=== PATIENT | female | born 1985 | race African-American/Black ===

== ENCOUNTER 2023-08-21 21:26 | Emergency (ER) | payer BC, SELFPAY ==
[2023-08-21 21:28] VITALS: BP 165/96
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
[2023-08-21] MEDS: TYLENOL 1000 MG PO (22:28)
[2023-08-22 00:09] VITALS: BP 149/90
== END 2023-08-22 00:11 | disposition home or self-care (01) ==
LOC: EMR 21:26
PROVIDERS: EMERGENCY PHYSICIAN Emergency Medicine; FAMILY PHYSICIAN Nurse Practitioner Family
DX: R51.9 Headache, unspecified (principal); S16.1XXA Strain of muscle, fascia and tendon at neck level, initial encounter; Y04.2XXA Assault by strike against or bumped into by another person, initial encounter
CPT/HCPCS: 99284; 70450; 72125

== ENCOUNTER 2024-10-29 14:00 | Emergency (ER) | payer BC, SELFPAY ==
[2024-10-29 14:07] VITALS: BP 172/93
[2024-10-29 14:46] LABS: HCG, Serum Qualitative Screen Negative
[2024-10-29 14:58] LABS: ALT (SGPT) 51 U/L (0-35); AST (SGOT) 61 U/L (14-36); Albumin 3.7 g/dl (3.5-5.0); Alkaline Phosphatase 130 U/L (38-126); Blood Urea Nitrogen 14 mg/dl (7-17); Calcium 9.3 mg/dl (8.4-10.2); Carbon Dioxide 26 mmol/L (22-30); Chloride 109 mmol/L (98-107); Glucose 104 mg/dl (70-99); Potassium 4.2 mmol/L (3.5-5.1); Sodium 141 mmol/L (135-145); Total Bilirubin 0.3 mg/dl (0.2-1.3); Total Protein 7.2 g/dl (6.3-8.2); eGFR > 60.00
[2024-10-29 14:59] LABS: NT-proBNP 298 pg/ml
[2024-10-29 15:00] LABS: % Basophils 0.6 % (0-2); % Eosinophils 4.6 % (0-6); % Immature Granulocytes 0.4 % (0-0.5); % Lymphocytes 49.2 % (20.5-51.1); % Monocytes 7.3 % (1.7-9.3); % Neutrophils 37.9 % (42.2-75.2); Absolute Eosinophils 0.2 10^3/uL (0-0.7); Absolute Lymphocytes 2.4 10^3/uL (1.2-3.4); Absolute Monocytes 0.4 10^3/uL (0.1-0.6); Absolute Neutrophils 1.8 10^3/uL (1.4-6.5); Hematocrit 28.4 % (37.0-47.0); Hemoglobin 8.6 g/dL (12.0-16.0); Mean Corp Hgb Conc. 30.3 g/dL (33.0-37.0); Mean Corpuscular Hgb 18.1 pg (27.0-31.0); Mean Corpuscular Volume 59.9 fL (81.0-99.0); Nucleated Red Blood Cells % 0 %; Platelet Count 370 10^3/uL (130-400); Red Blood Cell Count 4.74 10^6/uL (4.20-5.40); Red Cell Dist. Width 18.5 % (11.5-14.5); White Blood Cell Count 4.8 10^3/uL (4.8-10.8)
[2024-10-29 15:26] VITALS: BMI 41.9
[2024-10-29 15:31] VITALS: BP 151/74
--- NOTE | 2024-10-29 15:32 | ED.GENMED ---
History of Present Illness
General
Chief Complaint: Generalized Pain
Source: patient
Exam Limitations: none
Time Seen by Provider: 10/29/24 15:10
History of Present Illness
History of Present Illness:
39-year-old female complaining of joint pains mostly hands knees and ankles. Started 4 to 5 days ago. Briefly had a fever initially but none now. No rash. No other infectious symptoms denying cough congestion abdominal pain urinary symptoms. No
history of same. No obvious sick.
Past History
Past History
ED Past Medical History: HTN, NIDDM and Other (Thalassemia)
ED Past Surgical History: and Tonsilectomy; Negative Cardiac
Social History
Tobacco: Non-smoker
Alcohol: None
Drug: None
Personal: Single
Living: with family
Employment: Employed
Family History
Family History: Diabetes and Hypertension
Review of Systems
Review of Systems
All Other Systems: Not applicable
Constitutional: Denies chills
Respiratory: Reports no symptoms
ABD/GI: Reports no symptoms
: Reports no symptoms
Phy Exam
Physical Exam
Physical Exam:
GENERAL: Alert and oriented in no apparent distress
EYE: Orbits normal.
NECK: Supple
CARDIAC: Regular rate and rhythm without any obvious murmurs.
LUNGS: Clear breath sounds,normal
ABDOMEN: Soft, without focal tenderness or distention
NEUROLOGICAL: Alert and oriented , grossly non-focal
SKIN: Warm and dry, no rash or lesion, no discoloration, skin intact.
MUSCULOSKELETAL: No edema,no deformity.Good color. Mild tenderness both wrists knees and ankles. However no obvious warmth no significant swelling that I can note. Hips are normal shoulders normal. Fingers normal. Toes normal.
PSYCH: Normal and appropriate interaction.
Course
Orders/Labs/Results
Orders:
Orders
10/29/24 14:15
Test Result ONCE
10/29/24 14:22
C-Reactive Protein Urgent
Comment: ADD ON
Complete Blood Count/With Diff Urgent
Comprehensive Metabolic Panel Urgent
Creatine Phosphokinase Urgent
Comment: ADD ON
Erythrocyte Sed Rate Urgent
Comment: ADD ON
HCG, Serum Qualitative Screen Urgent
Lyme Progressive Urgent
NT-proBNP Urgent
10/29/24 15:20
Add On- LAB Urgent
Tests Added?: cpk,esr,crp
10/29/24 15:30
Urinalysis Reflex To Culture Urgent
Date Specimen was Collected: 10/29/24
Time Specimen was Collected: 15:28
Urine Microscopic Reflex Cult Urgent
10/29/24 18:01
US Periph Venous LOWER Ext Rajendra Urgent
Comment:
Reason For Exam: Bilateral calf pain
10/29/24 19:38
Prednisone [Deltasone] 40 mg PO NOW STA
Abnormal Lab Results
10/29/24 10/29/24
14:22 15:30
Hgb 8.6 L g/dL
(12.0-16.0)
Hct 28.4 L %
(37.0-47.0)
MCV 59.9 L fL
(81.0-99.0)
MCH 18.1 L pg
(27.0-31.0)
MCHC 30.3 L g/dL
(33.0-37.0)
RDW 18.5 H %
(11.5-14.5)
Neutrophils % 37.9 L %
(42.2-75.2)
ESR 72 H mm/hour
(0-20)
Chloride 109 H mmol/L
(98-107)
Glucose 104 H mg/dl
(70-99)
AST 61 H U/L
(14-36)
ALT 51 H U/L
(0-35)
Alkaline Phosphatase 130 H U/L
(38-126)
Creatine Kinase 788 H U/L
(30-135)
C-Reactive Protein 28.30 H mg/L
(0.0-10.00)
Ur Occult Blood Reflex 1+ A
(Negative)
Urine Bacteria (Reflex) Few A
(Negative)
Urine Albumin (Reflex) 1+ A
(Neg - Trace)
10/29/24 14:22
10/29/24 14:22
Vital Signs
Initial and Last Documented VS:
Initial Vital Signs
Temp Pulse Resp BP Pulse Ox
97.8 F 70 18 172/93 100
10/29/24 14:07 10/29/24 14:07 10/29/24 14:07 10/29/24 14:07 10/29/24 14:07
Last Documented Vital Signs
Temp Pulse Resp BP Pulse Ox
98.1 F 67 18 162/84 100
10/29/24 15:31 10/29/24 20:03 10/29/24 20:03 10/29/24 20:03 10/29/24 20:03
MDM/Problems Addressed
Differential Diagnosis Includes:
Patient describing polyarthralgia. Mild muscle pain bilaterally in both calves. Very low suspicion for DVT. No cord. Combined with arthralgias of ankles knees and hands does not fit a DVT diagnosis . No obvious infectious issues. Lyme titer
pending. We will not get a definitive diagnosis at this time. Will do CRP ESR and CPK. Likely will need rheumatology follow-up
*Pulse Oximetry
Patient hypoxic: no (100%)
*Critical Care Note
Total Time (30-74mins, 75-104mins- exclusive of procedures): Not Applicable
Update Note
Update Note:
Mild transaminitis. Mild to moderate inflammatory marker elevation. Minimal CPK elevation. Differential would include viral syndrome Lyme disease polymyositis. Tried to contact rheumatology with no success. Talk to patient's primary office and
covering physician. I did offer admission of the patient although a very low benefit to admission at this time. However it was offered. Patient does not want to stay which is reasonable. Will start low dose of prednisone. Repeat labs in 2 days.
Stay well-hydrated and close follow-up
Ultrasounds negative. Legs were rechecked. She has a small tiny denis on her left leg but no surrounding erythema and no drainage. Doubt this is a tick bite. Nothing to indicate antibiotic coverage at this time
ED Attending Note
-
Portions of this chart may have been created with voice recognition software.� Occasional wrong word or��sound alike� substitutions may have occurred due to the inherent limitations of voice recognition software.
Discharge Plan
Departure
Patient Disposition: Home (Routine Discharge)
Date of Disposition: 10/29/24
Time of Disposition: 17:54
Patient with high blood pressure during this ER visit?: Yes
Discharge Problem:
Polyarthralgia, Mild transaminitis, Chronic anemia, Mild myositis
Instructions: BLOOD PRESSURE
Prescriptions:
New
prednisone 10 mg tablet
10 mg PO DAILY Qty: 20 0RF
Rx Instructions:
4 tabs day 1. Then 1 less tab every other day until gone
No Action
glyburide 5 MG tablet
5 mg PO BID
amlodipine 10 MG tablet
10 mg PO DAILY
ibuprofen 800 MG tablet
800 mg PO Q6HPRN PRN (Reason: pain fever)
acetaminophen [Tylenol Extra Strength] 500 MG tablet
1,000 mg PO Q4HPRN PRN (Reason: pain)
enalapril maleate 5 MG tablet
5 mg PO DAILY Qty: 30 0RF
promethazine 25 MG tablet
25 mg PO Q6HPRN PRN (Reason: headache/vomiting) Qty: 10 0RF
Referrals:
Ricky Malik MD [Active, Rheumatology] - Next open appointment
Emely Milton CRNP [Family Provider] - Tomorrow
Activity Restrictions/Additional Instructions:
Your information was given to the gasket inspector. They should contact you for close follow-up. If not call them late morning tomorrow.
Get the repeat labs done in 2 days. Make sure that these are followed up closely
Return with any concerns including increased swelling redness fever rash or any other concerning symptoms
Monitor your blood sugars closely while on the steroids
The Lyme titer should be back in 2 to 4 days
Interventions
Interventions:
*Risk Screen - Suicide Last Done: 10/29/24 14:07
*General Assessment Last Done: 10/29/24 14:07
*Neglect/Abuse Screening Last Done: 10/29/24 14:07
*ED- Fall Risk Assessment Last Done: 10/29/24 15:28
*ED COVID-19 Vaccine History Last Done: 10/29/24 15:28
*Nursing Disposition Last Done: 10/29/24 20:10
Discharge Date and Time
Discharge Date/Time: 10/29/24 20:11
Print Language: MALTESE
[2024-10-29 16:00] LABS: Erythrocyte Sed Rate 72 mm/hour (0-20)
[2024-10-29 16:02] LABS: Creatine Phosphokinase 788 U/L (30-135)
[2024-10-29 16:03] LABS: Urine Albumin 1+ (Neg - Trace); Urine Bilirubin Negative (Negative); Urine Character Clear (Clear); Urine Color Yellow; Urine Glucose Negative (Negative); Urine Ketone Negative (Negative); Urine Leukocyte Negative (Negative); Urine Nitrite Negative (Negative); Urine Occult Blood 1+ (Negative); Urine Urobilinogen Negative (Neg - 1+)
[2024-10-29 16:27] LABS: Urine Red Blood Cell 0-2 /HPF (0-2); Urine Squamous Cell >30 /LPF (Few); Urine White Cell 0-2 /HPF (0-5)
[2024-10-29 16:28] LABS: Urine Bacteria Few (Negative)
[2024-10-29 17:07] VITALS: BP 150/85
[2024-10-29] MEDS: DELTASONE 40 MG PO (20:02)
[2024-10-29 20:03] VITALS: BP 162/84
== END 2024-10-29 20:11 | disposition home or self-care (01) ==
LOC: EMR 14:00
PROVIDERS: Physician Assistant; EMERGENCY PHYSICIAN Emergency Medicine; FAMILY PHYSICIAN Nurse Practitioner Family
DX: M79.642 Pain in left hand (principal); M79.641 Pain in right hand; M25.572 Pain in left ankle and joints of left foot; M25.571 Pain in right ankle and joints of right foot; M79.662 Pain in left lower leg; M79.661 Pain in right lower leg; R74.01 Elevation of levels of liver transaminase levels; D64.9 Anemia, unspecified; M60.9 Myositis, unspecified; E11.9 Type 2 diabetes mellitus without complications; I10 Essential (primary) hypertension; D56.9 Thalassemia, unspecified; M25.562 Pain in left knee; M25.561 Pain in right knee
CPT/HCPCS: 99284; 80053; 81003; 81015; 82550; 83880; 84703; 85025; 85652; 86140; 86618; 93970

== ENCOUNTER 2025-01-10 12:47 | Emergency (ER) | payer BC, SELFPAY ==
[2025-01-10 12:53] VITALS: BP 187/98
--- NOTE | 2025-01-10 14:09 | ED.GENMED ---
History of Present Illness
General
Chief Complaint: Chest Pain
Time Seen by Provider: 01/10/25 14:01
History of Present Illness
History of Present Illness:
Patient is a 39-year-old female with past medical history of hypertension and diabetes here today for evaluation of chest pain that began earlier today. Pain is localized to the lower central midline and extends along the upper middle epigastrium.
No left upper quadrant or right upper quadrant abdominal pain. No lower abdominal pain. No upper chest pain. No difficulty breathing. No fevers. No vomiting or diarrhea. She also endorses a headache associated with blurry vision. No focal
weakness noted. No other acute complaints. She does report a history of hypertension and has been compliant with her medications which include amlodipine.
Past History
Past History
ED Past Medical History: HTN, NIDDM and Other (Thalassemia)
ED Past Surgical History: and Tonsilectomy; Negative Cardiac
Social History
Tobacco: Non-smoker
Alcohol: None
Drug: None
Personal: Single
Living: with family
Employment: Employed
Family History
Family History: Diabetes and Hypertension
Review of Systems
Review of Systems
All Other Systems: ROS reviewed and negative except as documented in HPI and ROS
Phy Exam
Physical Exam
Physical Exam:
GENERAL: Alert , in no apparent distress
EYE: pupils equal and reactive, extraocular movements intact
NECK: Supple
ENT: o/p clr, mmm.
CARDIAC: Regular rate and rhythm .
LUNGS: Clear breath sounds bilaterally, no acute respiratory distress, no wheezes/rales/rhonchi
ABDOMEN: Soft, mild epigastric abdominal tenderness to palpation, no r/g
NEUROLOGICAL: Alert and oriented, no focal neuro deficits, cranial nerves II through XII intact, moving all extremities, normal sensation and motor
SKIN: Warm and dry, skin intact.
MUSCULOSKELETAL: No edema, well perfused.
PSYCH: Normal and appropriate interaction.
Scores
Heart Score for Chest Pain Patients
STEMI patient?: No
History: Slightly or Non-Suspicious
ECG: Normal
Age: </= 45 years
Risk Factors: >/= 3 Risk Factors or History of CAD
Troponin: </= Normal Limit
Heart Score for Chest Pain Patients: 2
Heart Score Risk: 2.5% MACE over next 6 weeks
Course
Orders/Labs/Results
Orders:
Orders
01/10/25 12:49
Electrocardiogram (*1) Urgent
Reason for Study: Chest Pain
EKG- Treatment ONCE
01/10/25 14:08
US Abdomen Complete/Upper Urgent
Reason For Exam: epigastric abd pain
01/10/25 14:09
CT Head W/o Iv Contrast Urgent
Comment:
Reason For Exam: headache, elevated blood pressure
CR Chest - 2 Views Urgent
Comment:
Reason For Exam: chest pain
01/10/25 14:18
Complete Blood Count/With Diff Urgent
Comprehensive Metabolic Panel Urgent
Lipase Urgent
Troponin I Urgent
01/10/25 16:51
Ibuprofen [Motrin] 800 mg PO NOW STA
Abnormal Lab Results
01/10/25
14:18
Hgb 8.5 L g/dL
(12.0-16.0)
Hct 28.2 L %
(37.0-47.0)
MCV 60.9 L fL
(81.0-99.0)
MCH 18.4 L pg
(27.0-31.0)
MCHC 30.1 L g/dL
(33.0-37.0)
RDW 18.7 H %
(11.5-14.5)
Plt Count 416 H 10^3/uL
(130-400)
MPV 10.5 H fL
(7.4-10.4)
Absolute Monos (auto) 0.7 H 10^3/uL
(0.1-0.6)
01/10/25 14:18
01/10/25 14:18
Vital Signs
Initial and Last Documented VS:
Initial Vital Signs
Temp Pulse Resp BP Pulse Ox
98.5 F 84 18 187/98 98
01/10/25 12:53 01/10/25 12:53 01/10/25 12:53 01/10/25 12:53 01/10/25 12:53
Last Documented Vital Signs
Temp Pulse Resp BP Pulse Ox
98.5 F 67 10 171/97 100
01/10/25 12:53 01/10/25 14:15 01/10/25 14:15 01/10/25 14:17 01/10/25 14:17
MDM/Problems Addressed
Differential Diagnosis Includes:
Patient is a 39-year-old female with past medical history of hypertension and diabetes here today for evaluation of chest pain that began earlier today. Overall, patient appears very well. Vitals remarkable for a moderately elevated blood pressure.
Physical examination described above. Patient is neurologically intact without acute focal deficits appreciated. She has a normal cardiopulmonary examination. She is mildly tender along the epigastrium. No rebound or guarding. We will monitor
her and repeat the patient's blood pressure. Will obtain EKG, chest x-ray, and screening labs. Will obtain CT brain and right upper quadrant ultrasound.
01/10/2025 17:20: Screening labs reveal anemia with a hemoglobin of 8.5 which is consistent with the patient's baseline. Head CT and chest x-ray negative. Right upper quadrant ultrasound reveals findings of gallstones without acute cholecystitis.
Repeat blood pressure improving. Patient made aware of findings. She appears very well overall. No emergent findings identified. Patient appears well and suitable for outpatient follow-up. Will recommend hematology evaluation for the anemia as
well as general surgery follow-up for the gallstones. Recommend supportive measures and close follow-up. Patient voices understanding. All questions answered. Stable for discharge.
*Pulse Oximetry
SaO2: 98
Oxygen Mode of Delivery: Room air
Patient hypoxic: no
*Critical Care Note
Total Time (30-74mins, 75-104mins- exclusive of procedures): Not Applicable
ED Attending Note
-
Portions of this chart may have been created with voice recognition software.� Occasional wrong word or��sound alike� substitutions may have occurred due to the inherent limitations of voice recognition software.
Discharge Plan
Departure
Patient Disposition: Home (Routine Discharge)
Date of Disposition: 01/10/25
Time of Disposition: 17:18
Patient with high blood pressure during this ER visit?: Yes
Condition: Fair
Discharge Problem:
Chest pain, Headache, Abdominal pain
Instructions: High Blood Pressure (DC), Gallstones (DC), Headache in adults - ED (DC), Chest Pain CBC Follow Up
Prescriptions:
New
ibuprofen 800 mg tablet
800 mg PO Q8H PRN (Reason: Pain) 5 Days Qty: 15 0RF
Rx Instructions:
Take with food
No Action
amlodipine 10 MG tablet
7.5 mg PO DAILY
ibuprofen 800 MG tablet
800 mg PO Q6HPRN PRN (Reason: pain fever)
acetaminophen [Tylenol Extra Strength] 500 MG tablet
1,000 mg PO Q4HPRN PRN (Reason: pain)
Referrals:
Denton Serrano DO [Active, Hematology / Oncology] - Follow up in 10 days
Trever Sexton MD [Active, Surgical] - Follow up in 10 days
Referral Note: Gallstones
UNKNOWN - PT DOES,NOT KNOW [Family Provider]
Activity Restrictions/Additional Instructions:
You were seen today for evaluation of chest pain, abdominal pain, and headache. Your blood work reveals anemia with a hemoglobin of 8.5 which is consistent with your baseline.
We obtained a CAT scan of your head which reveals no acute findings. We obtained a chest x-ray which reveals no acute findings. We obtained an ultrasound of your abdomen which reveals evidence of gallstones.
We have prescribed ibuprofen to take as directed as needed for pain.
Follow-up with general surgery for further evaluation of your abdominal pain/gallstones. Follow-up with hematology for further evaluation of your decreased blood counts/anemia.
Follow-up with your primary care provider for reevaluation and follow-up.
Return for any new, worsening, or concerning symptoms.
Interventions
Interventions:
*Risk Screen - Suicide Last Done: 01/10/25 12:53
*General Assessment Last Done: 01/10/25 12:53
*Neglect/Abuse Screening Last Done: 01/10/25 12:53
*ED- Fall Risk Assessment Last Done: 01/10/25 14:09
*ED COVID-19 Vaccine History Last Done: 01/10/25 14:09
ED- Cardiac Assessment Last Done: 01/10/25 14:22
ED- Neurological Assessment Last Done: 01/10/25 14:22
ED- Pulmonary Assessment Last Done: 01/10/25 14:22
Discharge Date and Time
Print Language: CAMBODIAN
[2025-01-10 14:17] VITALS: BP 171/97
[2025-01-10 14:42] LABS: ALT (SGPT) 11 U/L (0-35); AST (SGOT) 16 U/L (14-36); Albumin 4.1 g/dl (3.5-5.0); Alkaline Phosphatase 79 U/L (38-126); Blood Urea Nitrogen 13 mg/dl (7-17); Calcium 9.1 mg/dl (8.4-10.2); Carbon Dioxide 28 mmol/L (22-30); Chloride 105 mmol/L (98-107); Glucose 86 mg/dl (70-99); Lipase 43 U/L (23-300); Potassium 3.9 mmol/L (3.5-5.1); Sodium 137 mmol/L (135-145); Total Protein 7.5 g/dl (6.3-8.2); eGFR > 60.00
[2025-01-10 14:49] LABS: Hematocrit 28.2 % (37.0-47.0); Hemoglobin 8.5 g/dL (12.0-16.0); Mean Corp Hgb Conc. 30.1 g/dL (33.0-37.0); Mean Corpuscular Volume 60.9 fL (81.0-99.0); Nucleated Red Blood Cells % 0 %; Platelet Count 416 10^3/uL (130-400); Red Cell Dist. Width 18.7 % (11.5-14.5)
[2025-01-10 14:51] LABS: Troponin I < 0.012 ng/ml
[2025-01-10 16:33] VITALS: BP 164/81
[2025-01-10 17:00] VITALS: BP 160/85
[2025-01-10] MEDS: MOTRIN 800 MG PO (17:23)
== END 2025-01-10 17:41 | disposition home or self-care (01) ==
LOC: EMR 12:47
PROVIDERS: Physician Assistant; EMERGENCY PHYSICIAN Emergency Medicine
DX: R07.9 Chest pain, unspecified (principal); R51.9 Headache, unspecified; R10.13 Epigastric pain; K80.20 Calculus of gallbladder without cholecystitis without obstruction; I10 Essential (primary) hypertension; E11.9 Type 2 diabetes mellitus without complications; D56.9 Thalassemia, unspecified; Z79.899 Other long term (current) drug therapy
CPT/HCPCS: 99285; 70450; 71046; 76700; 80053; 83690; 84484; 85025; 93005